=== PATIENT | male | born 1975 | race African-American/Black ===

== ENCOUNTER 2019-04-07 00:01 | Emergency (ER) | payer MEDICAID, OTHER ==
[~2019-04-07] VITALS: Ht 185.4 cm; Wt 81.6 kg
[~2019-04-07 00:01] MED LIST: KEPPRA750 MG ORAL
--- NOTE | 2019-04-07 00:05 | NUR ---
ED Nurse Note: PT BIBA R68 FROM HOME C/C SEIZURE, PER EMS PT'S CAREGIVER CALLED 911, PT HAD 4 SZ WITNESSED, PT WAS GIVEN 5MG VERSED BY MEDICS ON FIELD, PER EMS PT IS COMPLIANT WITH MEDS AND TAKES DILANTIN AND KEPPRA BUT WHENEVER PT MISSES DOSE, PT HAS SZ. PT CURRENTLY POSTICTAL, UNABLE TO STAY STILL, MOVING SIDE TO SIDE, UNABLE TO ANSWER QUESTIONS. ERMD AWARE OF PT'S CONDITION, WILL CONT MONITOR. VSS. NO SX ORAL TRAUMA, RESP EVEN AND UNLABORED ON RA .
[2019-04-07] MEDS ORDERED: levETIRAcetam 1,000mg/NS100ml 100 ML IVPB ONE ×2 (00:13→00:15)
[2019-04-07] MEDS ORDERED: LORazepam Inj 2mg/ml 1ml ONE (00:20)
[2019-04-07 00:29] VITALS: BP 148/75
[2019-04-07] MEDS ORDERED: LORazepam Inj 2mg/ml 1ml IV ONE (00:30)
--- NOTE | 2019-04-07 02:10 | NUR ---
ED Nurse Note: PT AMBULATED W/ STEADY GAIT AND USED URINAL, NOTED IV ON BED WITH PT HAND WITH SMALL AMOUNT OF BLOOD, ERMD NOTIFIED, NO NEED FOR IV ACCESS AT THIS TIME PER ERMD. WILL CONT MONITOR. SZ PRECAUTION IN PLACE, ASPIRATION PRECAUTION IN PLACE.
[2019-04-07 02:29] VITALS: BP 125/75
--- NOTE | 2019-04-07 02:58 | NUR ---
HAND-OFF: Report given to REBEKAH RAMEY AND [facility].
--- NOTE | 2019-04-07 03:24 | Emergency Room Report ---
History of Present Illness General Chief Complaint: Seizure Source: Patient Present Illness HPI This a 44-year-old male with a history of seizure. He takes Keppra. Called 911 because he had a tonic-clonic seizure activity. Usually when this happened he is noncompliant with his medication. Patient is very agitated and postictal. Unable to get any other history from him. There was no trauma other than some mild oral trauma. No fever chills but no vomiting. Allergies: Coded Allergies: No Known Allergies (Unverified , 04/30/16) Patient History Past Medical History: see triage record, old chart reviewed Past Surgical History: other Pertinent Family History: none Social History: Denies: smoking Immunizations: other Reviewed Nursing Documentation: PMH: Agreed; PSxH: Agreed Nursing Documentation-PMH Past Medical History: No History, Except For Hx Cardiac Problems: No Hx Cancer: No Hx Gastrointestinal Problems: No Hx Neurological Problems: Yes Hx Cerebrovascular Accident: Yes Hx Seizures: Yes Review of Systems All Other Systems: limited - Secondary to postictal state Physical Exam Vital Signs Date Time Temp Pulse Resp B/P (MAP) Pulse Ox O2 Delivery O2 Flow Rate FiO2 04/06/19 23:49 98.2 04/07/19 00:29 90 18 04/07/19 00:29 148/75 96 Room Air Vitals unremarkable Sp02 EP Interpretation: reviewed, normal General Appearance: well appearing, no apparent distress, other - Agitated Head: normocephalic, atraumatic Eyes: bilateral eye PERRL, bilateral eye EOMI ENT: hearing grossly normal, normal pharynx Neck: full range of motion, supple, no meningismus Respiratory: chest non-tender, lungs clear, normal breath sounds Cardiovascular #1: regular rate, rhythm, no murmur Gastrointestinal: normal bowel sounds, non tender, no mass, no organomegaly, no bruit, non-distended Musculoskeletal: back normal, normal range of motion Neurologic: grossly normal Psychiatric: mood/affect normal Medical Decision Making Diagnostic Impression: Primary Impression: Epileptic seizure, generalized ER Course Patient presents with a seizure. Probably secondary to noncompliance with his Keppra. Dose of Keppra given here. I gave him Ativan because of his agitation. Will observe until he is more alert and discharged home afterward. Last Vital Signs Date Time Temp Pulse Resp B/P (MAP) Pulse Ox O2 Delivery O2 Flow Rate FiO2 7/30/19 02:29 98.2 56 18 125/75 96 Room Air Status: improved Disposition: HOME, SELF-CARE Condition: Stable Referrals: [facility]ERR[facility] (PCP) Patient Instructions: Seizure, Adult Additional Instructions: Take your seizure medication. Follow-up with your doctor in 7 days. Return if worse. Alton Obrien MD Apr 07, 2019 03:24
[2019-04-07 04:00] VITALS: BP 128/68
--- NOTE | 2019-04-07 04:00 | NUR ---
ED Nurse Note: Recieved report from talia pino to resume care, pt is here for sz and has been discharged to home in am when awakens and is safe for discharge, pt was awakened and moved to new bed, pt remains confused and speaks in-appropriately, pt thinks he is at school, can not recall name, date or place, has patent saline lock, pt placed in bed 2 and on cardiac monitoring, remains on sz precautions and side rails padded, will resume care as primary nurse and d/c in am.
[2019-04-07 06:00] VITALS: BP 123/68
--- NOTE | 2019-04-07 06:00 | NUR ---
ED Nurse Note: Pt continues to sleep in bed, arouses easily to tactile stimulus, pt remains confused and babbling speech, no sz activity, v/s stable, no sob or labored breathing, iv site patent, will continue to monitor while assessing for safety for discharge.
--- NOTE | 2019-04-07 07:20 | NUR ---
ED Nurse Note: received pt on bed, with respiration equal and unlabored, no episode of seizure at the moment. vss. will continue to monitor.
[2019-04-07 08:00] VITALS: BP 125/74
--- NOTE | 2019-04-07 08:00 | NUR ---
ER DISCHARGE NOTE: Pt able to walk steadily, able to call family member to pick him up, pt able to state name, date, place and purpose. Patient is cleared to be discharged per ERMD, pt is aox4, on room air, with stable vital signs. pt was given dc and prescription instructions, pt was able to verbalize understanding, pt id band removed without complications. pt is able to ambulate with steady gait. pt took all belongings.
== END 2019-04-07 08:00 | disposition home or self-care (01) ==
LOC: EDBD 00:01 → EMR 00:35
DX: G40.909 Epilepsy, unspecified, not intractable, without status epilepticus (principal); Z86.73 Personal history of transient ischemic attack (TIA), and cerebral infarction without residual deficits
CPT/HCPCS: 96374; 96375; 99284; J1953